=== PATIENT | male | born 1955 | race African-American/Black ===

== ENCOUNTER 2017-05-04 10:20 | Day surgery (SDC) | payer MEDICARE ==
[2017-05-04 12:06] LABS: POTASSIUM 4.3 mmol/L (3.5-5.1)
[2017-05-04] MEDS ORDERED: ROPIVACAINE 0.5 % 30 ML VIAL (12:24)
[2017-05-04] MEDS ORDERED: MIDAZOLAM 1 MG/ML 2 ML INJ ×2 (12:44→14:03)
[2017-05-04] MEDS ORDERED: FENTAnyl 50 MCG/ML VIAL (12:44)
[2017-05-04] MEDS: LIDOCAINE 1% (MPF) 30 ML INJ (13:07)
[2017-05-04] MEDS: THROMBIN 5000 UNIT VIAL (13:07)
[2017-05-04] MEDS: HEPARIN 1000 UNITS/ML 10 ML INJ (13:07)
[2017-05-04] MEDS: GELATIN SIZE 100 SPONGE (13:08)
[2017-05-04] MEDS ORDERED: hydrALAzine 20 MG INJ ×2 (13:11→14:38)
[2017-05-04] MEDS ORDERED: HYDROmorphONE (0.2 MG/ML) 10ML SYG IV ×2 (14:43→15:00)
[2017-05-04] MEDS: HYDROmorphONE (0.2 MG/ML) 10ML SYG IV ×2 (14:47→14:57)
[2017-05-04] MEDS: hydrALAzine 20 MG INJ IV ×2 (14:47→14:56)
[2017-05-04] MEDS ORDERED: METOCLOPRAMIDE 10 MG INJ IV (15:00)
[2017-05-04] MEDS ORDERED: FENTAnyl 50 MCG/ML VIAL IV ×2 (15:00)
[2017-05-04] MEDS ORDERED: MEPERIDINE 25 MG INJ IV (15:00)
[2017-05-04] MEDS ORDERED: ONDANSETRON 4 MG INJ IV (15:00)
[2017-05-04] MEDS ORDERED: DIPHENHYDRAMINE 50 MG INJ IV (15:00)
== END 2017-05-04 16:30 | disposition home or self-care (01) ==
LOC: SDS 10:20
DX: Z45.2 Encounter for adjustment and management of vascular access device (principal); N18.6 End stage renal disease; E11.22 Type 2 diabetes mellitus with diabetic chronic kidney disease; I12.0 Hypertensive chronic kidney disease with stage 5 chronic kidney disease or end stage renal disease
CPT/HCPCS: 36830; 84132

== ENCOUNTER 2017-06-29 12:43 | Inpatient (IN) | payer MEDICARE, BC ==
[2017-06-29] MEDS: IPRATROPIUM (NEB) 0.5 MG/2.5 ML AMP INH (14:05)
[2017-06-29] MEDS: ALBUTEROL 0.5% (NEB) 2.5 MG/0.5 ML AMP INH (14:06)
[2017-06-29] MEDS: LEVOFLOXACIN 750MG/D5W (PMX) 150 ML IVPB (14:30)
[2017-06-29] MEDS: METHYLPREDNISOLONE 125 MG INJ IV (14:30)
[2017-06-29 14:34] LABS: ADD MAN DIFF? NO
[2017-06-29 14:36] LABS: ABNORMAL IP MESSAGE 1; BASOPHILS % 0.6 % (0.0-2.0); EOSINOPHILS % 0.3 % (0.0-7.0); HEMOGLOBIN 10.5 g/dl (14.0-18.0); LYMPHOCYTES # 0.6 10^3/ul (0.8-2.9); LYMPHOCYTES % 8.9 % (15.0-51.0); MEAN CORPUSCULAR HEMOGLOBIN 31.9 pg (29.0-33.0); MEAN CORPUSCULAR VOLUME 91.2 fl (82.0-101.0); MEAN PLATELET VOLUME 10.9 fl (7.4-10.4); MONOCYTE # 0.9 10^3/ul (0.3-0.9); NEUTROPHIL # 4.9 10^3/ul (1.6-7.5); NEUTROPHILS % 75.9 % (39.0-77.0); PLATELET COUNT 169 10^3/UL (140-415); POSITIVE DIFF @See below; RED BLOOD COUNT 3.29 10^6/ul (4.70-6.10); RED CELL DISTRIBUTION WIDTH 18.5 % (11.5-14.5)
[2017-06-29 14:36] LABS: WHITE BLOOD COUNT 6.5 10^3/ul (4.8-10.8)
[2017-06-29] MEDS: IBUPROFEN 600 MG TAB PO (14:40)
[2017-06-29 14:54] LABS: INR 1.22; PARTIAL THROMBOPLASTIN TIME 33.2 Sec (25.0-35.0); PROTIME 15.6 Sec (11.9-14.9); PT RATIO 1.2
[2017-06-29 14:56] LABS: ALANINE AMINOTRANSFERASE 34 IU/L (13-69); ALBUMIN 3.9 g/dl (3.3-4.9); ALKALINE PHOSPHATASE 86 IU/L (42-121); ANION GAP 22 (8-16); ASPARTATE AMINO TRANSFERASE 18 IU/L (15-46); BILIRUBIN,INDIRECT 0.3 mg/dl (0-1.1); BILIRUBIN,TOTAL 0.3 mg/dl (0.2-1.3); BLOOD UREA NITROGEN 58 mg/dl (7-20); CALCIUM 9.1 mg/dl (8.4-10.2); CARBON DIOXIDE 24 mmol/L (21-31); CHLORIDE 98 mmol/L (97-110); CREATININE 9.23 mg/dl (0.61-1.24); GLUCOSE 128 mg/dl (70-220); LIPASE 158 U/L (23-300); POTASSIUM 3.8 mmol/L (3.5-5.1); SODIUM 140 mmol/L (135-144); TOTAL PROTEIN 6.9 g/dl (6.1-8.1)
[2017-06-29 15:07] LABS: TROPONIN-I 0.088 ng/ml (0.00-0.12)
[2017-06-29 15:12] LABS: LACTIC ACID 2.1 mmol/L (0.5-2.0)
[2017-06-29] MEDS ORDERED: ONDANSETRON 4 MG INJ IV ×2 (16:00→16:30)
[2017-06-29] MEDS ORDERED: ACETAMINOPHEN 325 MG TAB PO ×2 (16:00→16:30)
[2017-06-29 16:27] LABS: LACTIC ACID 2.5 mmol/L (0.5-2.0)
[2017-06-29] MEDS ORDERED: HYDROCODONE/APAP (5/325) TAB PO (16:30)
[2017-06-29] MEDS ORDERED: NACL 0.9% 3 ML SYG IV (16:30)
[2017-06-29 18:37] LABS: LACTIC ACID 1.5 mmol/L (0.5-2.0)
[2017-06-29] MEDS: ALBUTEROL/IPRATROPIUM (NEB) 3 ML AMP HHN (19:24)
[2017-06-29] MEDS: CLONIDINE 0.2 MG/24 HR PATCH TRANSDERM (19:39)
[2017-06-29] MEDS: NEBIVOLOL 5 MG TAB PO (20:35)
[2017-06-29] MEDS: GUAIFENESIN/DM (SR) TAB PO (20:36)
[2017-06-29] MEDS: VALSARTAN 160 MG TAB PO (20:36)
[2017-06-29] MEDS: FLUOXETINE 20 MG CAP PO (20:36)
[2017-06-29] MEDS: NIFEdipine (XL) 60 MG TAB PO (20:36)
[2017-06-29] MEDS: MINOXIDIL 2.5 MG TAB PO (20:39)
[2017-06-29] MEDS ORDERED: RANITIDINE 150 MG TAB PO (21:00)
[2017-06-29] MEDS: HEPARIN 5,000 UNIT/0.5 ML VIAL SC (22:56)
[2017-06-30] MEDS: ALBUTEROL/IPRATROPIUM (NEB) 3 ML AMP HHN ×4 (01:50→20:36)
[2017-06-30] MEDS: LEVOTHYROXINE 150 MCG TAB PO (05:53)
[2017-06-30] MEDS: PANTOPRAZOLE (EC) 40 MG TAB PO (05:53)
[2017-06-30] MEDS: LEVOTHYROXINE 175 MCG TAB PO (05:53)
[2017-06-30] MEDS: HEPARIN 5,000 UNIT/0.5 ML VIAL SC ×3 (05:55→21:48)
[2017-06-30] MEDS ORDERED: LEVOTHYROXINE 100 MCG TAB PO (07:00)
[2017-06-30 08:33] LABS: ADD MAN DIFF? NO
[2017-06-30 08:44] LABS: ABNORMAL IP MESSAGE 1; BASOPHILS % 0.2 % (0.0-2.0); HEMATOCRIT 31.4 % (42.0-52.0); HEMOGLOBIN 11.1 g/dl (14.0-18.0); LYMPHOCYTES # 0.5 10^3/ul (0.8-2.9); LYMPHOCYTES % 8.7 % (15.0-51.0); MEAN CORPUSCULAR HGB CONC 35.4 g/dl (32.0-37.0); MEAN CORPUSCULAR VOLUME 90.5 fl (82.0-101.0); MEAN PLATELET VOLUME 10.7 fl (7.4-10.4); MONOCYTE # 0.7 10^3/ul (0.3-0.9); MONOCYTES % 11.9 % (0.0-11.0); NEUTROPHIL # 4.7 10^3/ul (1.6-7.5); NEUTROPHILS % 78.9 % (39.0-77.0); PLATELET COUNT 166 10^3/UL (140-415); POSITIVE DIFF @See below; RED BLOOD COUNT 3.47 10^6/ul (4.70-6.10); RED CELL DISTRIBUTION WIDTH 18.3 % (11.5-14.5)
[2017-06-30 08:59] LABS: ALANINE AMINOTRANSFERASE 34 IU/L (13-69); ALBUMIN 3.8 g/dl (3.3-4.9); ALBUMIN/GLOBULIN RATIO 1.26; ALKALINE PHOSPHATASE 89 IU/L (42-121); ANION GAP 21 (8-16); ASPARTATE AMINO TRANSFERASE 16 IU/L (15-46); BILIRUBIN,INDIRECT 0.1 mg/dl (0-1.1); BILIRUBIN,TOTAL 0.1 mg/dl (0.2-1.3); BLOOD UREA NITROGEN 66 mg/dl (7-20); CALCIUM 9.4 mg/dl (8.4-10.2); CARBON DIOXIDE 23 mmol/L (21-31); CHLORIDE 100 mmol/L (97-110); CREATININE 9.78 mg/dl (0.61-1.24); GLUCOSE 154 mg/dl (70-220); PHOSPHORUS 6.6 mg/dl (2.5-4.9); POTASSIUM 3.9 mmol/L (3.5-5.1); SODIUM 140 mmol/L (135-144); TOTAL PROTEIN 6.8 g/dl (6.1-8.1)
[2017-06-30] MEDS ORDERED: LEVOFLOXACIN 250MG/D5W (PMX) 50 ML IVPB (09:00)
[2017-06-30 09:07] LABS: HEMOGLOBIN A1C 5.1 % (0-5.9)
[2017-06-30] MEDS: GUAIFENESIN/DM (SR) TAB PO ×2 (09:15→20:51)
[2017-06-30] MEDS: LIOTHYRONINE 5 MCG TAB PO (09:15)
[2017-06-30] MEDS: SEVELAMER CARBONATE 0.8 GM PKT PO ×4 (09:16→20:50)
[2017-06-30 10:26] LABS: TROPONIN-I 0.068 ng/ml (0.00-0.12)
[2017-06-30 11:17] LABS: AADO2 Arterial 47.4 mmHg (7.0-24.0); Allen Test ACCEPTAB; Arterial Base Excess 0.6 mmol/L (-3.0-3); Arterial Blood Gas Oxygen Sat 87.2 mmHG (95.0-98.0); Arterial COHb 0.5 % (0.0-3.0); Arterial Fraction of Oxyhgb 86.4 % (93.0-99.0); Arterial HCO3 25.1 mmol/L (22.0-26.0); Arterial MetHb 0.4 % (0.0-1.5); Arterial Total Hemglobin 12.3 g/dl (12.0-18.0); Arterial pCO2 39.9 mmhg (35-45); MODE ROOM AIR; Site Right Radial
[2017-06-30 12:49] LABS: HAAIG REFLEX REFLEX FILED
[2017-06-30 13:28] LABS: HEPATITIS B SURFACE ANTIGEN NEGATIVE (NEGATIVE)
[2017-06-30 13:46] LABS: HEPATITIS B CORE ANTIBODY NEGATIVE (NEGATIVE); HEPATITIS C VIRAL ANTIBODY NEGATIVE (NEGATIVE)
[2017-06-30 20:30] LABS: ADD UMIC YES; UR ASCORBIC ACID NEGATIVE (NEGATIVE); UR BACTERIA FEW /HPF (NONE SEEN); UR BILIRUBIN (Dip) NEGATIVE (NEGATIVE); UR BLOOD (Dip) NEGATIVE (NEGATIVE); UR CLARITY CLOUDY (CLEAR); UR COLOR YELLOW (YELLOW); UR GLUCOSE (Dip) NEGATIVE (NEGATIVE); UR KETONES (Dip) NEGATIVE (NEGATIVE); UR LEUKOCYTE ESTERASE (Dip) 1+ Leu/ul (NEGATIVE); UR MUCUS MANY /HPF (NONE SEEN); UR NITRITE (Dip) NEGATIVE (NEGATIVE); UR RBC 5 /HPF (0-5); UR SPECIFIC GRAVITY (Dip) 1.005 (1.003-1.030); UR SQUAMOUS EPITHELIAL CELL FEW /HPF (FEW); UR TOTAL PROTEIN (Dip) 3+ mg/dl (NEGATIVE); UR UROBILINOGEN (Dip) NEGATIVE (NEGATIVE); UR WBC 2 /HPF (0-5)
[2017-06-30] MEDS: MINOXIDIL 2.5 MG TAB PO (20:51)
[2017-06-30] MEDS: NIFEdipine (XL) 60 MG TAB PO (20:51)
[2017-06-30] MEDS: NEBIVOLOL 5 MG TAB PO (20:51)
[2017-06-30] MEDS: VALSARTAN 160 MG TAB PO (20:52)
[2017-06-30] MEDS: FLUOXETINE 20 MG CAP PO (21:47)
[2017-07-01] MEDS: ALBUTEROL/IPRATROPIUM (NEB) 3 ML AMP HHN ×4 (01:21→19:46)
[2017-07-01] MEDS: LEVOTHYROXINE 150 MCG TAB PO (06:12)
[2017-07-01] MEDS: LEVOTHYROXINE 175 MCG TAB PO (06:13)
[2017-07-01] MEDS: HEPARIN 5,000 UNIT/0.5 ML VIAL SC ×3 (06:14→20:52)
[2017-07-01 06:32] LABS: ADD MAN DIFF? NO
[2017-07-01 07:23] LABS: ANION GAP 19 (8-16); BLOOD UREA NITROGEN 50 mg/dl (7-20); CALCIUM 8.9 mg/dl (8.4-10.2); CARBON DIOXIDE 26 mmol/L (21-31); CHLORIDE 102 mmol/L (97-110); CREATININE 7.16 mg/dl (0.61-1.24); GLUCOSE 95 mg/dl (70-220); PHOSPHORUS 4.5 mg/dl (2.5-4.9); POTASSIUM 3.3 mmol/L (3.5-5.1); SODIUM 144 mmol/L (135-144)
[2017-07-01 08:10] LABS: WHITE BLOOD COUNT 7.5 10^3/ul (4.8-10.8)
[2017-07-01 08:10] LABS: BASOPHILS % 0.3 % (0.0-2.0); EOSINOPHILS % 0.4 % (0.0-7.0); HEMATOCRIT 30.8 % (42.0-52.0); HEMOGLOBIN 10.5 g/dl (14.0-18.0); LYMPHOCYTES # 0.6 10^3/ul (0.8-2.9); LYMPHOCYTES % 8.4 % (15.0-51.0); MEAN CORPUSCULAR HEMOGLOBIN 31.3 pg (29.0-33.0); MEAN CORPUSCULAR HGB CONC 34.1 g/dl (32.0-37.0); MEAN CORPUSCULAR VOLUME 91.7 fl (82.0-101.0); MEAN PLATELET VOLUME 10.7 fl (7.4-10.4); MONOCYTE # 0.7 10^3/ul (0.3-0.9); MONOCYTES % 9.2 % (0.0-11.0); NEUTROPHIL # 6.1 10^3/ul (1.6-7.5); NEUTROPHILS % 81.4 % (39.0-77.0); PLATELET COUNT 167 10^3/UL (140-415); RED BLOOD COUNT 3.36 10^6/ul (4.70-6.10); RED CELL DISTRIBUTION WIDTH 18.5 % (11.5-14.5)
[2017-07-01] MEDS: GUAIFENESIN/DM (SR) TAB PO ×2 (08:49→20:50)
[2017-07-01] MEDS: SEVELAMER CARBONATE 0.8 GM PKT PO ×2 (08:50→18:10)
[2017-07-01 08:52] LABS: ERYTHROCYTE SEDIMENTATION RATE 9 mm/Hr (0-20)
[2017-07-01 09:01] LABS: IRON 36 ug/dl (35-150)
[2017-07-01 09:11] LABS: % IRON SATURATION 23 % SAT (22-52); TOTAL IRON BINDING CAPACITY 157 ug/dl (241-421)
[2017-07-01] MEDS: POTASSIUM CHLORIDE (SR) 10 MEQ TAB PO (12:12)
[2017-07-01] MEDS: LIOTHYRONINE 5 MCG TAB PO (12:12)
[2017-07-01] MEDS ORDERED: POTASSIUM CHLORIDE (SR) 20 MEQ TAB PO (13:05)
[2017-07-01] MEDS: LEVOFLOXACIN 500MG/D5W (PMX) 100 ML IVPB (15:26)
[2017-07-01] MEDS: VALSARTAN 160 MG TAB PO (20:49)
[2017-07-01] MEDS: NEBIVOLOL 5 MG TAB PO (20:50)
[2017-07-01] MEDS: FLUOXETINE 20 MG CAP PO (20:50)
[2017-07-02] MEDS: ALBUTEROL/IPRATROPIUM (NEB) 3 ML AMP HHN ×4 (01:05→19:27)
[2017-07-02] MEDS: LEVOTHYROXINE 175 MCG TAB PO (06:00)
[2017-07-02] MEDS: LEVOTHYROXINE 150 MCG TAB PO (06:08)
[2017-07-02] MEDS: HEPARIN 5,000 UNIT/0.5 ML VIAL SC ×3 (06:12→22:00)
[2017-07-02 07:18] LABS: ADD MAN DIFF? NO
[2017-07-02 07:22] LABS: WHITE BLOOD COUNT 5.2 10^3/ul (4.8-10.8)
[2017-07-02 07:22] LABS: BASOPHILS % 0.6 % (0.0-2.0); EOSINOPHILS % 0.6 % (0.0-7.0); HEMOGLOBIN 9.8 g/dl (14.0-18.0); LYMPHOCYTES # 0.9 10^3/ul (0.8-2.9); LYMPHOCYTES % 16.5 % (15.0-51.0); MEAN CORPUSCULAR HEMOGLOBIN 32.9 pg (29.0-33.0); MEAN PLATELET VOLUME 11.3 fl (7.4-10.4); MONOCYTE # 0.6 10^3/ul (0.3-0.9); NEUTROPHIL # 3.6 10^3/ul (1.6-7.5); NEUTROPHILS % 69.9 % (39.0-77.0); PLATELET COUNT 179 10^3/UL (140-415); RED BLOOD COUNT 2.98 10^6/ul (4.70-6.10); RED CELL DISTRIBUTION WIDTH 18.5 % (11.5-14.5)
[2017-07-02 07:44] LABS: MAGNESIUM 2.3 mg/dl (1.7-2.5)
[2017-07-02 07:49] LABS: CHOLESTEROL 135 mg/dl (100-200)
[2017-07-02 07:49] LABS: CHOL/HDL RATIO 3.3 RATIO; HDL CHOLESTEROL 40 mg/dl (30-78); LDL CHOLESTEROL,CALCULATED 83 mg/dl; TRIGLYCERIDES 59 mg/dl (0-149)
[2017-07-02 07:59] LABS: ANION GAP 19 (8-16); BLOOD UREA NITROGEN 58 mg/dl (7-20); CARBON DIOXIDE 26 mmol/L (21-31); CHLORIDE 101 mmol/L (97-110); CREATININE 7.95 mg/dl (0.61-1.24); GLUCOSE 81 mg/dl (70-220); POTASSIUM 3.7 mmol/L (3.5-5.1); SODIUM 142 mmol/L (135-144)
[2017-07-02] MEDS: SEVELAMER CARBONATE 0.8 GM PKT PO ×3 (08:45→17:58)
[2017-07-02] MEDS: GUAIFENESIN/DM (SR) TAB PO ×2 (08:45→20:22)
[2017-07-02] MEDS: LIOTHYRONINE 5 MCG TAB PO (08:45)
[2017-07-02] MEDS: IODIXANOL LOCM 100 ML BTL (11:00)
[2017-07-02] MEDS: SOD CHLORIDE 0.9% 100 ML (11:00)
[2017-07-02] MEDS ORDERED: PEG/ELECTROLYTES 4L BTL PO (12:30)
[2017-07-02] MEDS: predniSONE 20 MG TAB PO ×2 (14:55→20:22)
[2017-07-02] MEDS ORDERED: NA POLYST SULFON 15 GM/60 ML BTL PO (17:00)
[2017-07-02] MEDS ORDERED: LACTULOSE 30ML CUP PO (17:00)
[2017-07-02] MEDS: FLUOXETINE 20 MG CAP PO (20:22)
[2017-07-02] MEDS: NIFEdipine (XL) 30 MG TAB PO (21:00)
[2017-07-02] MEDS: NEBIVOLOL 5 MG TAB PO (21:00)
[2017-07-02] MEDS: VALSARTAN 160 MG TAB PO (21:00)
[2017-07-03] MEDS: ALBUTEROL/IPRATROPIUM (NEB) 3 ML AMP HHN ×4 (01:03→20:29)
[2017-07-03] MEDS: ALBUMIN HUMAN 25% 100 ML IV ×2 (03:50→03:52)
[2017-07-03] MEDS: LEVOTHYROXINE 150 MCG TAB PO (06:18)
[2017-07-03] MEDS: HEPARIN 5,000 UNIT/0.5 ML VIAL SC ×3 (06:22→22:08)
[2017-07-03] MEDS: LEVOTHYROXINE 175 MCG TAB PO ×2 (08:00→08:37)
[2017-07-03] MEDS: predniSONE 20 MG TAB PO ×2 (08:36→22:05)
[2017-07-03] MEDS: SEVELAMER CARBONATE 0.8 GM PKT PO ×3 (08:38→17:13)
[2017-07-03] MEDS: GUAIFENESIN/DM (SR) TAB PO ×2 (08:56→22:05)
[2017-07-03] MEDS: LIOTHYRONINE 5 MCG TAB PO (08:56)
[2017-07-03 12:08] LABS: ADD MAN DIFF? NO
[2017-07-03 12:17] LABS: WHITE BLOOD COUNT 4.7 10^3/ul (4.8-10.8)
[2017-07-03 12:17] LABS: ABNORMAL IP MESSAGE 1; HEMATOCRIT 27.9 % (42.0-52.0); HEMOGLOBIN 9.9 g/dl (14.0-18.0); LYMPHOCYTES # 0.5 10^3/ul (0.8-2.9); LYMPHOCYTES % 10.9 % (15.0-51.0); MEAN CORPUSCULAR HEMOGLOBIN 36.7 pg (29.0-33.0); MEAN CORPUSCULAR HGB CONC 35.5 g/dl (32.0-37.0); MEAN CORPUSCULAR VOLUME 103.3 fl (82.0-101.0); MEAN PLATELET VOLUME 10.5 fl (7.4-10.4); MONOCYTE # 0.4 10^3/ul (0.3-0.9); MONOCYTES % 9.2 % (0.0-11.0); NEUTROPHIL # 3.7 10^3/ul (1.6-7.5); NEUTROPHILS % 79.7 % (39.0-77.0); PLATELET COUNT 145 10^3/UL (140-415); POSITIVE DIFF @See below
[2017-07-03 12:35] LABS: ANION GAP 18 (8-16); BLOOD UREA NITROGEN 42 mg/dl (7-20); CALCIUM 9.2 mg/dl (8.4-10.2); CARBON DIOXIDE 26 mmol/L (21-31); CHLORIDE 102 mmol/L (97-110); CREATININE 6.03 mg/dl (0.61-1.24); GLUCOSE 124 mg/dl (70-220); POTASSIUM 4.4 mmol/L (3.5-5.1); SODIUM 142 mmol/L (135-144)
[2017-07-03] MEDS: LEVOFLOXACIN 500MG/D5W (PMX) 100 ML IVPB (14:52)
[2017-07-03] MEDS: EPOETIN 10000 UNITS/1 ML INJ (ESRD) SC (18:16)
[2017-07-03] MEDS: NEBIVOLOL 5 MG TAB PO (21:00)
[2017-07-03] MEDS: NIFEdipine (XL) 30 MG TAB PO (22:04)
[2017-07-03] MEDS: ATORVASTATIN 10 MG TAB PO (22:05)
[2017-07-03] MEDS: FLUOXETINE 20 MG CAP PO (22:06)
[2017-07-03] MEDS: VALSARTAN 160 MG TAB PO (22:06)
[2017-07-04] MEDS: ALBUTEROL/IPRATROPIUM (NEB) 3 ML AMP HHN ×2 (01:27→08:30)
[2017-07-04] MEDS: LEVOTHYROXINE 175 MCG TAB PO (06:31)
[2017-07-04] MEDS: LEVOTHYROXINE 150 MCG TAB PO (06:31)
[2017-07-04] MEDS: HEPARIN 5,000 UNIT/0.5 ML VIAL SC ×2 (06:36→14:00)
[2017-07-04] MEDS: GUAIFENESIN/DM (SR) TAB PO (09:11)
[2017-07-04] MEDS: predniSONE 20 MG TAB PO (09:11)
[2017-07-04] MEDS: LIOTHYRONINE 5 MCG TAB PO (09:11)
[2017-07-04] MEDS: SEVELAMER CARBONATE 0.8 GM PKT PO ×2 (09:11→11:24)
[2017-07-04 09:17] LABS: ADD MAN DIFF? NO
[2017-07-04 09:50] LABS: ANION GAP 20 (8-16); BLOOD UREA NITROGEN 49 mg/dl (7-20); CALCIUM 9.6 mg/dl (8.4-10.2); CARBON DIOXIDE 27 mmol/L (21-31); CHLORIDE 100 mmol/L (97-110); CREATININE 6.87 mg/dl (0.61-1.24); GLUCOSE 102 mg/dl (70-220); POTASSIUM 4.6 mmol/L (3.5-5.1); SODIUM 142 mmol/L (135-144)
[2017-07-04 10:56] LABS: ABNORMAL IP MESSAGE 1; BASOPHILS % 0.2 % (0.0-2.0); EOSINOPHILS % 0.2 % (0.0-7.0); HEMATOCRIT 30.6 % (42.0-52.0); HEMOGLOBIN 10.3 g/dl (14.0-18.0); LYMPHOCYTES # 0.4 10^3/ul (0.8-2.9); LYMPHOCYTES % 7.1 % (15.0-51.0); MEAN CORPUSCULAR HEMOGLOBIN 31.9 pg (29.0-33.0); MEAN CORPUSCULAR HGB CONC 33.7 g/dl (32.0-37.0); MEAN CORPUSCULAR VOLUME 94.7 fl (82.0-101.0); MEAN PLATELET VOLUME 11.2 fl (7.4-10.4); MONOCYTE # 0.3 10^3/ul (0.3-0.9); MONOCYTES % 5.8 % (0.0-11.0); NEUTROPHIL # 4.3 10^3/ul (1.6-7.5); NEUTROPHILS % 86.3 % (39.0-77.0); PLATELET COUNT 186 10^3/UL (140-415); POSITIVE DIFF @See below; RED BLOOD COUNT 3.23 10^6/ul (4.70-6.10); RED CELL DISTRIBUTION WIDTH 18.4 % (11.5-14.5)
[2017-07-06 07:51] LABS: PROCALCITONIN 1.39 ng/mL (<0.10)
== END 2017-07-04 15:10 | disposition home or self-care (01) | DRG 202 ==
LOC: MS4 21:19 → E/R 12:43 → MS4 15:45
PROC: 5A1D70Z Performance of Urinary Filtration, Intermittent, Less than 6 Hours Per Day (ICD-10-PCS; principal; 2017-06-29)
PROC: 4A033R1 Measurement of Arterial Saturation, Peripheral, Percutaneous Approach (ICD-10-PCS; 2017-06-30)
PROC: 5A1D70Z Performance of Urinary Filtration, Intermittent, Less than 6 Hours Per Day (ICD-10-PCS; 2017-07-01)
PROC: 5A1D70Z Performance of Urinary Filtration, Intermittent, Less than 6 Hours Per Day (ICD-10-PCS; 2017-07-03)
DX: J45.909 Unspecified asthma, uncomplicated (principal); N18.6 End stage renal disease; I12.0 Hypertensive chronic kidney disease with stage 5 chronic kidney disease or end stage renal disease; I27.29 Other secondary pulmonary hypertension; I47.1 Supraventricular tachycardia; E66.9 Obesity, unspecified; G47.33 Obstructive sleep apnea (adult) (pediatric); R19.7 Diarrhea, unspecified; R73.03 Prediabetes; M10.9 Gout, unspecified; D63.1 Anemia in chronic kidney disease; I35.2 Nonrheumatic aortic (valve) stenosis with insufficiency; I25.10 Atherosclerotic heart disease of native coronary artery without angina pectoris; E03.9 Hypothyroidism, unspecified; Z99.2 Dependence on renal dialysis; Z85.850 Personal history of malignant neoplasm of thyroid; Z88.2 Allergy status to sulfonamides
CPT/HCPCS: 36415; 36600; 70450; 71045; 71275; 74176; 80048; 80053; 80061; 81001; 82607; 82728; 82803; 82962; 83036; 83540; 83605; 83690; 83735; 84100; 84145; 84443; 84484; 85025; 85610; 85651; 85730; 86704; 86709; 86803; 87040; 87070; 87081; 87086; 87340; 87400; 90935; 93005; 93306; 94640; 94644; 94664; 96374; 96375; 99291-25

== ENCOUNTER 2017-07-17 22:14 | Inpatient (IN) | payer MEDICARE, BC ==
[2017-07-17] MEDS: SOD CHLORIDE 0.9% 1,000 ML IV (23:30)
[2017-07-18 00:10] LABS: ADD MAN DIFF? NO
[2017-07-18 00:26] LABS: WHITE BLOOD COUNT 6.3 10^3/ul (4.8-10.8)
[2017-07-18 00:26] LABS: BASOPHIL # 0.1 10^3/ul (0.0-0.1); BASOPHILS % 0.8 % (0.0-2.0); EOSINOPHILS % 0.6 % (0.0-7.0); HEMATOCRIT 31.3 % (42.0-52.0); HEMOGLOBIN 11.2 g/dl (14.0-18.0); LYMPHOCYTES # 0.9 10^3/ul (0.8-2.9); LYMPHOCYTES % 13.5 % (15.0-51.0); MEAN CORPUSCULAR HEMOGLOBIN 31.9 pg (29.0-33.0); MEAN CORPUSCULAR HGB CONC 35.8 g/dl (32.0-37.0); MEAN CORPUSCULAR VOLUME 89.2 fl (82.0-101.0); MEAN PLATELET VOLUME 10.4 fl (7.4-10.4); MONOCYTE # 1.1 10^3/ul (0.3-0.9); MONOCYTES % 16.7 % (0.0-11.0); NEUTROPHIL # 4.3 10^3/ul (1.6-7.5); NEUTROPHILS % 67.9 % (39.0-77.0); NUCLEATED RED BLOOD CELLS # 0.1 10^3/ul (0.0-0.0); NUCLEATED RED BLOOD CELLS% 0.8 /100WBC (0.0-0.0); PLATELET COUNT 143 10^3/UL (140-415); RED BLOOD COUNT 3.51 10^6/ul (4.70-6.10); RED CELL DISTRIBUTION WIDTH 19.9 % (11.5-14.5)
[2017-07-18 00:38] LABS: ALANINE AMINOTRANSFERASE 316 IU/L (13-69); ALBUMIN 3.8 g/dl (3.3-4.9); ALBUMIN/GLOBULIN RATIO 1.18; ALKALINE PHOSPHATASE 186 IU/L (42-121); ANION GAP 20 (8-16); ASPARTATE AMINO TRANSFERASE 349 IU/L (15-46); BILIRUBIN,INDIRECT 0.9 mg/dl (0-1.1); BLOOD UREA NITROGEN 35 mg/dl (7-20); CALCIUM 8.9 mg/dl (8.4-10.2); CARBON DIOXIDE 28 mmol/L (21-31); CHLORIDE 96 mmol/L (97-110); CREATININE 6.88 mg/dl (0.61-1.24); GLUCOSE 87 mg/dl (70-220); POTASSIUM 3.5 mmol/L (3.5-5.1); SODIUM 140 mmol/L (135-144)
[2017-07-18 00:47] LABS: LACTIC ACID 2.5 mmol/L (0.5-2.0)
[2017-07-18 00:51] LABS: INR 1.34; PROTIME 16.8 Sec (11.9-14.9); PT RATIO 1.3
[2017-07-18 00:52] LABS: PARTIAL THROMBOPLASTIN TIME 35.6 Sec (25.0-35.0)
[2017-07-18] MEDS: SODIUM CHLORIDE 0.9% 1L BAG IV* (01:02)
[2017-07-18] MEDS: CEFEPIME 2GM/50 ML (PMX) 50 ML IVPB (01:04)
[2017-07-18 01:32] LABS: AMMONIA 18 umol/l (9-30)
[2017-07-18] MEDS: VANCOMYCIN 1 GM (PMX) 250 ML IVPB (01:35)
[2017-07-18] MEDS ORDERED: VANCOMYCIN IV PER PHARMACY XX (04:00)
[2017-07-18] MEDS ORDERED: NACL 0.9% 3 ML SYG IV (04:00)
[2017-07-18] MEDS ORDERED: ONDANSETRON 4 MG INJ IV (04:00)
[2017-07-18 04:37] LABS: AADO2 Arterial 44.9 mmHg (7.0-24.0); Allen Test ACCEPTAB; Arterial Base Excess 0.8 mmol/L (-3.0-3); Arterial Blood Gas Oxygen Sat 91.2 mmHG (95.0-98.0); Arterial COHb 0.5 % (0.0-3.0); Arterial Fraction of Oxyhgb 90.6 % (93.0-99.0); Arterial HCO3 24.5 mmol/L (22.0-26.0); Arterial MetHb 0.2 % (0.0-1.5); Arterial Total Hemglobin 12.2 g/dl (12.0-18.0); Arterial pCO2 36.1 mmhg (35-45); MODE ROOM AIR; Site Left Radial
[2017-07-18] MEDS: PANTOPRAZOLE 40 MG INJ IV (06:07)
[2017-07-18] MEDS: VANCOMYCIN 1 GM in 250 ML IVPB (06:07)
[2017-07-18] MEDS: HEPARIN 5,000 UNIT/0.5 ML VIAL SC (06:11)
[2017-07-18] MEDS ORDERED: LEVOTHYROXINE 100 MCG TAB PO (07:00)
[2017-07-18 07:05] LABS: LACTIC ACID 2.3 mmol/L (0.5-2.0)
[2017-07-18 07:43] LABS: LACTIC ACID 2.1 mmol/L (0.5-2.0)
[2017-07-18] MEDS: SEVELAMER CARBONATE 0.8 GM PKT PO ×3 (08:44→20:26)
[2017-07-18] MEDS: LEVOTHYROXINE 75 MCG TAB PO (08:44)
[2017-07-18] MEDS: NIFEdipine (XL) 30 MG TAB PO (08:46)
[2017-07-18] MEDS: LIOTHYRONINE 5 MCG TAB PO (08:47)
[2017-07-18] MEDS: FAMOTIDINE 20 MG TAB PO (08:48)
[2017-07-18 10:44] LABS: TROPONIN-I 0.086 ng/ml (0.00-0.12)
[2017-07-18] MEDS: LORAZEPAM 2 MG INJ IV (10:55)
[2017-07-18 11:17] LABS: B-TYPE NATRIURETIC PEPTIDE 57100 PG/ML (0-125)
[2017-07-18] MEDS: AZITHROMYCIN 500MG/NS (PMX) 250 ML IVPB (12:08)
[2017-07-18] MEDS: MEROPENEM 500MG/50 ML (PMX) 50 ML IVPB (18:29)
[2017-07-18] MEDS: VALSARTAN 160 MG TAB PO (21:00)
[2017-07-18] MEDS: NEBIVOLOL 5 MG TAB PO (21:00)
[2017-07-18] MEDS: FLUOXETINE 20 MG CAP PO (21:00)
[2017-07-18] MEDS: RANITIDINE 150 MG TAB PO (21:00)
[2017-07-18] MEDS ORDERED: NEBIVOLOL 5 MG TAB PO (21:00)
[2017-07-19 00:39] LABS: HEPATITIS B SURFACE ANTIBODY NEGATIVE (NEGATIVE)
[2017-07-19] MEDS: PANTOPRAZOLE 40 MG INJ IV (06:43)
[2017-07-19] MEDS: LEVOTHYROXINE 75 MCG TAB PO (06:43)
[2017-07-19] MEDS: SEVELAMER CARBONATE 0.8 GM PKT PO ×3 (08:00→17:55)
[2017-07-19 08:52] LABS: ADD MAN DIFF? NO
[2017-07-19] MEDS ORDERED: MEROPENEM 1 GM/50ML(PMX) 50 ML IVPB (09:00)
[2017-07-19] MEDS ORDERED: CEFEPIME 1GM/50 ML (PMX) 50 ML IVPB (09:00)
[2017-07-19 09:03] LABS: ABNORMAL IP MESSAGE 1; BASOPHIL # 0.1 10^3/ul (0.0-0.1); EOSINOPHILS % 0.5 % (0.0-7.0); HEMATOCRIT 30.2 % (42.0-52.0); HEMOGLOBIN 10.9 g/dl (14.0-18.0); LYMPHOCYTES # 0.8 10^3/ul (0.8-2.9); MEAN CORPUSCULAR HEMOGLOBIN 31.6 pg (29.0-33.0); MEAN CORPUSCULAR HGB CONC 36.1 g/dl (32.0-37.0); MEAN CORPUSCULAR VOLUME 87.5 fl (82.0-101.0); MEAN PLATELET VOLUME 12.1 fl (7.4-10.4); MONOCYTES % 15.7 % (0.0-11.0); NEUTROPHIL # 4.3 10^3/ul (1.6-7.5); NEUTROPHILS % 69.5 % (39.0-77.0); NUCLEATED RED BLOOD CELLS # 0.1 10^3/ul (0.0-0.0); NUCLEATED RED BLOOD CELLS% 1.1 /100WBC (0.0-0.0); PLATELET COUNT 87 10^3/UL (140-415); POSITIVE DIFF @See below; RED BLOOD COUNT 3.45 10^6/ul (4.70-6.10); RED CELL DISTRIBUTION WIDTH 20.7 % (11.5-14.5)
[2017-07-19 09:03] LABS: WHITE BLOOD COUNT 6.2 10^3/ul (4.8-10.8)
[2017-07-19 09:50] LABS: ALANINE AMINOTRANSFERASE 275 IU/L (13-69); ALBUMIN 3.6 g/dl (3.3-4.9); ALBUMIN/GLOBULIN RATIO 1.38; ALKALINE PHOSPHATASE 156 IU/L (42-121); ANION GAP 20 (8-16); ASPARTATE AMINO TRANSFERASE 201 IU/L (15-46); BILIRUBIN,INDIRECT 1.1 mg/dl (0-1.1); BILIRUBIN,TOTAL 1.5 mg/dl (0.2-1.3); BLOOD UREA NITROGEN 30 mg/dl (7-20); CALCIUM 9.3 mg/dl (8.4-10.2); CARBON DIOXIDE 24 mmol/L (21-31); CHLORIDE 100 mmol/L (97-110); CREATININE 6.09 mg/dl (0.61-1.24); GLUCOSE 77 mg/dl (70-220); PHOSPHORUS 4.5 mg/dl (2.5-4.9); POTASSIUM 3.4 mmol/L (3.5-5.1); SODIUM 141 mmol/L (135-144); TOTAL PROTEIN 6.2 g/dl (6.1-8.1)
[2017-07-19] MEDS: NIFEdipine (XL) 30 MG TAB PO (10:05)
[2017-07-19] MEDS: LIOTHYRONINE 5 MCG TAB PO (10:05)
[2017-07-19 10:19] LABS: Allen Test ACCEPTAB; Arterial Base Excess 0.4 mmol/L (-3.0-3); Arterial Blood Gas Oxygen Sat 89.9 mmHG (95.0-98.0); Arterial COHb 0.7 % (0.0-3.0); Arterial Fraction of Oxyhgb 89.1 % (93.0-99.0); Arterial HCO3 23.7 mmol/L (22.0-26.0); Arterial MetHb 0.2 % (0.0-1.5); Arterial Total Hemglobin 12.3 g/dl (12.0-18.0); Arterial pCO2 33.9 mmhg (35-45); MODE ROOM AIR; Site Right Radial
[2017-07-19 10:27] LABS: ERYTHROCYTE SEDIMENTATION RATE 2 mm/Hr (0-20)
[2017-07-19] MEDS: HEPARIN 5,000 UNIT/0.5 ML VIAL SC ×2 (10:35→20:55)
[2017-07-19 12:27] LABS: HAAIG REFLEX REFLEX FILED
[2017-07-19] MEDS ORDERED: ALBUTEROL/IPRATROPIUM (NEB) 3 ML AMP (12:46)
[2017-07-19] MEDS: AZITHROMYCIN 500MG/NS (PMX) 250 ML IVPB (13:14)
[2017-07-19] MEDS: POTASSIUM CHLORIDE (SR) 20 MEQ TAB PO (13:20)
[2017-07-19] MEDS: LACTULOSE 30ML CUP PO ×2 (13:21→22:17)
[2017-07-19] MEDS: ALBUTEROL/IPRATROPIUM (NEB) 3 ML AMP HHN (14:00)
[2017-07-19 15:30] LABS: HEPATITIS B SURFACE ANTIGEN NEGATIVE (NEGATIVE)
[2017-07-19 15:48] LABS: HEPATITIS B CORE ANTIBODY NEGATIVE (NEGATIVE); HEPATITIS C VIRAL ANTIBODY NEGATIVE (NEGATIVE)
[2017-07-19] MEDS: MEROPENEM 500MG/50 ML (PMX) 50 ML IVPB (18:26)
[2017-07-19] MEDS: NEBIVOLOL 5 MG TAB PO (20:39)
[2017-07-19] MEDS: VALSARTAN 160 MG TAB PO (20:39)
[2017-07-19] MEDS: RANITIDINE 150 MG TAB PO (20:43)
[2017-07-19] MEDS: FLUOXETINE 20 MG CAP PO (20:43)
[2017-07-19] MEDS: SOD CHLORIDE 0.9% 250 ML IV ×2 (22:05→22:10)
[2017-07-20 04:05] LABS: VANCOMYCIN,RANDOM 10.2 ug/ml
[2017-07-20] MEDS: ALBUTEROL/IPRATROPIUM (NEB) 3 ML AMP HHN ×4 (05:28→19:10)
[2017-07-20] MEDS: LEVOTHYROXINE 100 MCG TAB PO (05:55)
[2017-07-20] MEDS: PANTOPRAZOLE 40 MG INJ IV (05:55)
[2017-07-20] MEDS: LACTULOSE 30ML CUP PO ×3 (05:55→21:16)
[2017-07-20] MEDS: LEVOTHYROXINE 25 MCG TAB PO (05:56)
[2017-07-20 05:58] LABS: ADD MAN DIFF? NO
[2017-07-20 06:03] LABS: ABNORMAL IP MESSAGE 1; BASOPHIL # 0.1 10^3/ul (0.0-0.1); BASOPHILS % 0.6 % (0.0-2.0); EOSINOPHILS # 0.1 10^3/ul (0.0-0.5); EOSINOPHILS % 0.9 % (0.0-7.0); HEMATOCRIT 29.3 % (42.0-52.0); HEMOGLOBIN 10.6 g/dl (14.0-18.0); LYMPHOCYTES # 0.8 10^3/ul (0.8-2.9); LYMPHOCYTES % 9.8 % (15.0-51.0); MEAN CORPUSCULAR HEMOGLOBIN 32.8 pg (29.0-33.0); MEAN CORPUSCULAR HGB CONC 36.2 g/dl (32.0-37.0); MEAN CORPUSCULAR VOLUME 90.7 fl (82.0-101.0); MEAN PLATELET VOLUME 10.5 fl (7.4-10.4); MONOCYTE # 1.1 10^3/ul (0.3-0.9); MONOCYTES % 14.1 % (0.0-11.0); NEUTROPHILS % 74.4 % (39.0-77.0); NUCLEATED RED BLOOD CELLS% 0.2 /100WBC (0.0-0.0); PLATELET COUNT 93 10^3/UL (140-415); POSITIVE DIFF @See below; RED BLOOD COUNT 3.23 10^6/ul (4.70-6.10); RED CELL DISTRIBUTION WIDTH 20.9 % (11.5-14.5)
[2017-07-20 06:03] LABS: WHITE BLOOD COUNT 8.1 10^3/ul (4.8-10.8)
[2017-07-20 06:35] LABS: ALANINE AMINOTRANSFERASE 223 IU/L (13-69); ALBUMIN 3.5 g/dl (3.3-4.9); ALBUMIN/GLOBULIN RATIO 1.25; ALKALINE PHOSPHATASE 136 IU/L (42-121); ANION GAP 21 (8-16); ASPARTATE AMINO TRANSFERASE 118 IU/L (15-46); BILIRUBIN,TOTAL 1.1 mg/dl (0.2-1.3); BLOOD UREA NITROGEN 38 mg/dl (7-20); CALCIUM 9.1 mg/dl (8.4-10.2); CARBON DIOXIDE 25 mmol/L (21-31); CHLORIDE 101 mmol/L (97-110); CREATININE 7.43 mg/dl (0.61-1.24); GLUCOSE 105 mg/dl (70-220); POTASSIUM 3.3 mmol/L (3.5-5.1); SODIUM 144 mmol/L (135-144); TOTAL PROTEIN 6.3 g/dl (6.1-8.1)
[2017-07-20] MEDS: NIFEdipine (XL) 30 MG TAB PO (08:19)
[2017-07-20] MEDS: LIOTHYRONINE 5 MCG TAB PO (08:19)
[2017-07-20] MEDS: HEPARIN 5,000 UNIT/0.5 ML VIAL SC ×2 (08:24→21:28)
[2017-07-20] MEDS: AZITHROMYCIN 500MG/NS (PMX) 250 ML IVPB (09:13)
[2017-07-20] MEDS: SEVELAMER CARBONATE 0.8 GM PKT PO ×3 (09:13→17:09)
[2017-07-20 11:46] LABS: CYTOMEGALOVIRUS ANTIBODY (IGG) <0.60 U/mL; CYTOMEGALOVIRUS ANTIBODY (IGM) <30.00 AU/mL
[2017-07-20] MEDS: VANCOMYCIN 1.5 GM in SOD CHLORIDE 0.9% 250 ML IVPB (11:47)
[2017-07-20 13:17] LABS: ANCA SCREEN NEGATIVE (NEGATIVE); MYELOPEROXIDASE ANTIBODY <1.0 AI; PROTEINASE-3 ANTIBODY <1.0 AI
[2017-07-20] MEDS: ACETAMINOPHEN 325 MG TAB PO ×2 (13:27→19:31)
[2017-07-20 14:46] LABS: ANA SCREEN NEGATIVE (NEGATIVE)
[2017-07-20] MEDS: MEROPENEM 500MG/50 ML (PMX) 50 ML IVPB (17:11)
[2017-07-20] MEDS: VALSARTAN 160 MG TAB PO (21:00)
[2017-07-20] MEDS: NEBIVOLOL 5 MG TAB PO (21:00)
[2017-07-20] MEDS: FLUOXETINE 20 MG CAP PO (21:16)
[2017-07-20] MEDS: RANITIDINE 150 MG TAB PO (21:16)
[2017-07-21] MEDS: ALBUTEROL/IPRATROPIUM (NEB) 3 ML AMP HHN ×4 (01:03→19:45)
[2017-07-21] MEDS: LEVOTHYROXINE 25 MCG TAB PO (05:15)
[2017-07-21] MEDS: LEVOTHYROXINE 100 MCG TAB PO (05:15)
[2017-07-21] MEDS: LACTULOSE 30ML CUP PO (05:15)
[2017-07-21] MEDS: PANTOPRAZOLE 40 MG INJ IV (05:15)
[2017-07-21 07:46] LABS: ADD MAN DIFF? NO
[2017-07-21 07:53] LABS: WHITE BLOOD COUNT 7.5 10^3/ul (4.8-10.8)
[2017-07-21 07:53] LABS: BASOPHILS % 0.4 % (0.0-2.0); EOSINOPHILS # 0.1 10^3/ul (0.0-0.5); EOSINOPHILS % 0.9 % (0.0-7.0); HEMATOCRIT 29.7 % (42.0-52.0); HEMOGLOBIN 10.4 g/dl (14.0-18.0); LYMPHOCYTES # 0.6 10^3/ul (0.8-2.9); LYMPHOCYTES % 8.5 % (15.0-51.0); MEAN CORPUSCULAR HEMOGLOBIN 32.1 pg (29.0-33.0); MEAN CORPUSCULAR VOLUME 91.7 fl (82.0-101.0); MEAN PLATELET VOLUME 11.5 fl (7.4-10.4); MONOCYTE # 1.1 10^3/ul (0.3-0.9); MONOCYTES % 15.1 % (0.0-11.0); NEUTROPHIL # 5.6 10^3/ul (1.6-7.5); NEUTROPHILS % 74.7 % (39.0-77.0); NUCLEATED RED BLOOD CELLS% 0.3 /100WBC (0.0-0.0); PLATELET COUNT 103 10^3/UL (140-415); RED BLOOD COUNT 3.24 10^6/ul (4.70-6.10); RED CELL DISTRIBUTION WIDTH 21.6 % (11.5-14.5)
[2017-07-21] MEDS: SEVELAMER CARBONATE 0.8 GM PKT PO ×3 (07:55→17:53)
[2017-07-21 08:15] LABS: ALANINE AMINOTRANSFERASE 171 IU/L (13-69); ALBUMIN 3.5 g/dl (3.3-4.9); ALKALINE PHOSPHATASE 120 IU/L (42-121); ANION GAP 21 (8-16); ASPARTATE AMINO TRANSFERASE 74 IU/L (15-46); BILIRUBIN,INDIRECT 0.8 mg/dl (0-1.1); BILIRUBIN,TOTAL 0.8 mg/dl (0.2-1.3); BLOOD UREA NITROGEN 44 mg/dl (7-20); CALCIUM 8.9 mg/dl (8.4-10.2); CARBON DIOXIDE 24 mmol/L (21-31); CHLORIDE 102 mmol/L (97-110); CREATININE 8.15 mg/dl (0.61-1.24); GLUCOSE 101 mg/dl (70-220); POTASSIUM 3.3 mmol/L (3.5-5.1); SODIUM 144 mmol/L (135-144); TOTAL PROTEIN 6.4 g/dl (6.1-8.1)
[2017-07-21 08:55] LABS: Allen Test ACCEPTAB; Arterial Base Excess -1.8 mmol/L (-3.0-3); Arterial COHb 0.7 % (0.0-3.0); Arterial Fraction of Oxyhgb 92.1 % (93.0-99.0); Arterial HCO3 22.2 mmol/L (22.0-26.0); Arterial MetHb 0.3 % (0.0-1.5); Arterial Total Hemglobin 11.6 g/dl (12.0-18.0); Arterial pCO2 35.2 mmhg (35-45); MODE NASAL CANNULA; Site Right Radial
[2017-07-21] MEDS: LIOTHYRONINE 5 MCG TAB PO (09:00)
[2017-07-21] MEDS: NIFEdipine (XL) 30 MG TAB PO (09:00)
[2017-07-21] MEDS: IOHEXOL 14.3 MG(I)/ML (ADULT) BTL PO (09:41)
[2017-07-21] MEDS: AZITHROMYCIN 500MG/NS (PMX) 250 ML IVPB (09:41)
[2017-07-21] MEDS: HEPARIN 5,000 UNIT/0.5 ML VIAL SC ×2 (09:49→22:20)
[2017-07-21] MEDS: ACETAMINOPHEN 325 MG TAB PO (10:58)
[2017-07-21] MEDS: LIDOCAINE 1% (MPF) 5 ML VIAL SC (12:30)
[2017-07-21] MEDS: IOHEXOL 300MG/ML 30 ML BTL (13:15)
[2017-07-21] MEDS: SOD CHLORIDE 0.9% 0 ML (13:15)
[2017-07-21] MEDS: POTASSIUM CHLORIDE (SR) 20 MEQ TAB PO (14:30)
[2017-07-21] MEDS: ALBUMIN HUMAN 25% 100 ML IV ×3 (16:28→18:30)
[2017-07-21] MEDS: VALSARTAN 160 MG TAB PO (21:00)
[2017-07-21] MEDS: NEBIVOLOL 5 MG TAB PO (21:00)
[2017-07-21 21:04] LABS: ACETYLCHOLINE RECEPTOR AB <0.30 nmol/L
[2017-07-21] MEDS: RIFAXIMIN 550 MG TAB PO (21:54)
[2017-07-21] MEDS: FLUOXETINE 20 MG CAP PO (21:54)
[2017-07-21] MEDS: RANITIDINE 150 MG TAB PO (21:54)
[2017-07-21] MEDS: MEROPENEM 500MG/50 ML (PMX) 50 ML IVPB (22:50)
[2017-07-22] MEDS: ALBUTEROL/IPRATROPIUM (NEB) 3 ML AMP HHN ×4 (01:48→20:44)
[2017-07-22] MEDS: LEVOTHYROXINE 100 MCG TAB PO (05:16)
[2017-07-22] MEDS: PANTOPRAZOLE 40 MG INJ IV (05:17)
[2017-07-22] MEDS: LEVOTHYROXINE 25 MCG TAB PO (05:17)
[2017-07-22 07:00] LABS: ADD MAN DIFF? NO
[2017-07-22 07:05] LABS: ABNORMAL IP MESSAGE 1; BASOPHILS % 0.5 % (0.0-2.0); EOSINOPHILS # 0.1 10^3/ul (0.0-0.5); EOSINOPHILS % 1.5 % (0.0-7.0); HEMATOCRIT 27.1 % (42.0-52.0); HEMOGLOBIN 9.7 g/dl (14.0-18.0); LYMPHOCYTES # 0.7 10^3/ul (0.8-2.9); LYMPHOCYTES % 11.3 % (15.0-51.0); MEAN CORPUSCULAR HEMOGLOBIN 32.4 pg (29.0-33.0); MEAN CORPUSCULAR HGB CONC 35.8 g/dl (32.0-37.0); MEAN CORPUSCULAR VOLUME 90.6 fl (82.0-101.0); MEAN PLATELET VOLUME 10.5 fl (7.4-10.4); MONOCYTE # 0.7 10^3/ul (0.3-0.9); MONOCYTES % 12.1 % (0.0-11.0); NEUTROPHIL # 4.4 10^3/ul (1.6-7.5); NEUTROPHILS % 74.4 % (39.0-77.0); NUCLEATED RED BLOOD CELLS% 0.3 /100WBC (0.0-0.0); POSITIVE DIFF @See below; RED BLOOD COUNT 2.99 10^6/ul (4.70-6.10); RED CELL DISTRIBUTION WIDTH 20.8 % (11.5-14.5)
[2017-07-22 07:08] LABS: PLATELET COUNT 75 10^3/UL (140-415)
[2017-07-22 07:36] LABS: ALANINE AMINOTRANSFERASE 121 IU/L (13-69); ALBUMIN 3.7 g/dl (3.3-4.9); ALBUMIN/GLOBULIN RATIO 1.42; ALKALINE PHOSPHATASE 98 IU/L (42-121); ANION GAP 20 (8-16); ASPARTATE AMINO TRANSFERASE 41 IU/L (15-46); BLOOD UREA NITROGEN 30 mg/dl (7-20); CALCIUM 9.1 mg/dl (8.4-10.2); CARBON DIOXIDE 27 mmol/L (21-31); CHLORIDE 101 mmol/L (97-110); CREATININE 6.81 mg/dl (0.61-1.24); GLUCOSE 104 mg/dl (70-220); POTASSIUM 3.6 mmol/L (3.5-5.1); SODIUM 144 mmol/L (135-144); TOTAL PROTEIN 6.3 g/dl (6.1-8.1)
[2017-07-22] MEDS: SEVELAMER CARBONATE 0.8 GM PKT PO ×3 (08:44→17:07)
[2017-07-22] MEDS: NIFEdipine (XL) 30 MG TAB PO (08:44)
[2017-07-22] MEDS: LIOTHYRONINE 5 MCG TAB PO (08:44)
[2017-07-22] MEDS: RIFAXIMIN 550 MG TAB PO ×2 (08:44→21:12)
[2017-07-22] MEDS: HEPARIN 5,000 UNIT/0.5 ML VIAL SC ×2 (08:46→21:10)
[2017-07-22] MEDS: AZITHROMYCIN 500MG/NS (PMX) 250 ML IVPB (08:47)
[2017-07-22] MEDS: MEROPENEM 500MG/50 ML (PMX) 50 ML IVPB (17:07)
[2017-07-22] MEDS: RANITIDINE 150 MG TAB PO (21:00)
[2017-07-22] MEDS: FLUOXETINE 20 MG CAP PO (21:12)
[2017-07-22] MEDS: ACETAMINOPHEN 325 MG TAB PO (21:13)
[2017-07-22] MEDS: NEBIVOLOL 5 MG TAB PO (21:17)
[2017-07-23] MEDS: ALBUTEROL/IPRATROPIUM (NEB) 3 ML AMP HHN ×4 (02:24→19:57)
[2017-07-23] MEDS: LEVOTHYROXINE 25 MCG TAB PO (05:35)
[2017-07-23] MEDS: PANTOPRAZOLE 40 MG INJ IV (05:35)
[2017-07-23] MEDS: LEVOTHYROXINE 100 MCG TAB PO (05:36)
[2017-07-23 06:47] LABS: VANCOMYCIN,RANDOM 13.4 ug/ml
[2017-07-23] MEDS: SEVELAMER CARBONATE 0.8 GM PKT PO ×3 (08:19→16:49)
[2017-07-23] MEDS: RIFAXIMIN 550 MG TAB PO ×2 (08:19→20:51)
[2017-07-23] MEDS: LIOTHYRONINE 5 MCG TAB PO (08:19)
[2017-07-23] MEDS: AZITHROMYCIN 500MG/NS (PMX) 250 ML IVPB (08:20)
[2017-07-23] MEDS: HEPARIN 5,000 UNIT/0.5 ML VIAL SC ×2 (08:21→20:59)
[2017-07-23] MEDS: VANCOMYCIN 1.25 GM in SOD CHLORIDE 0.9% 250 ML IVPB (12:00)
[2017-07-23 16:21] LABS: PROCALCITONIN 1.42 ng/mL (<0.10)
[2017-07-23] MEDS: MEROPENEM 500MG/50 ML (PMX) 50 ML IVPB (16:47)
[2017-07-23] MEDS: FLUOXETINE 20 MG CAP PO (20:51)
[2017-07-23] MEDS: NEBIVOLOL 5 MG TAB PO (20:51)
[2017-07-23] MEDS: RANITIDINE 150 MG TAB PO (20:52)
[2017-07-24] MEDS: ALBUTEROL/IPRATROPIUM (NEB) 3 ML AMP HHN ×4 (01:49→20:01)
[2017-07-24] MEDS: PANTOPRAZOLE 40 MG INJ IV (05:38)
[2017-07-24] MEDS: LEVOTHYROXINE 100 MCG TAB PO (05:39)
[2017-07-24] MEDS: LEVOTHYROXINE 25 MCG TAB PO (05:40)
[2017-07-24] MEDS: SEVELAMER CARBONATE 0.8 GM PKT PO ×3 (09:22→17:38)
[2017-07-24 09:45] LABS: ADD MAN DIFF? NO
[2017-07-24 09:54] LABS: ABNORMAL IP MESSAGE 1; BASOPHIL # 0.1 10^3/ul (0.0-0.1); BASOPHILS % 0.9 % (0.0-2.0); EOSINOPHILS % 0.3 % (0.0-7.0); HEMATOCRIT 30.5 % (42.0-52.0); HEMOGLOBIN 10.7 g/dl (14.0-18.0); LYMPHOCYTES # 0.7 10^3/ul (0.8-2.9); LYMPHOCYTES % 12.2 % (15.0-51.0); MEAN CORPUSCULAR HEMOGLOBIN 31.8 pg (29.0-33.0); MEAN CORPUSCULAR HGB CONC 35.1 g/dl (32.0-37.0); MEAN CORPUSCULAR VOLUME 90.8 fl (82.0-101.0); MONOCYTE # 0.9 10^3/ul (0.3-0.9); MONOCYTES % 15.4 % (0.0-11.0); NEUTROPHIL # 4.1 10^3/ul (1.6-7.5); NEUTROPHILS % 70.9 % (39.0-77.0); NUCLEATED RED BLOOD CELLS% 0.5 /100WBC (0.0-0.0); POSITIVE DIFF @See below; RED BLOOD COUNT 3.36 10^6/ul (4.70-6.10); RED CELL DISTRIBUTION WIDTH 19.9 % (11.5-14.5)
[2017-07-24 09:54] LABS: WHITE BLOOD COUNT 5.8 10^3/ul (4.8-10.8)
[2017-07-24 10:06] LABS: PLATELET COUNT 74 10^3/UL (140-415)
[2017-07-24 11:00] LABS: ALANINE AMINOTRANSFERASE 90 IU/L (13-69); ALBUMIN/GLOBULIN RATIO 1.66; ALKALINE PHOSPHATASE 100 IU/L (42-121); ANION GAP 24 (8-16); ASPARTATE AMINO TRANSFERASE 28 IU/L (15-46); BILIRUBIN,INDIRECT 0.8 mg/dl (0-1.1); BILIRUBIN,TOTAL 0.8 mg/dl (0.2-1.3); BLOOD UREA NITROGEN 45 mg/dl (7-20); CALCIUM 9.7 mg/dl (8.4-10.2); CARBON DIOXIDE 22 mmol/L (21-31); CHLORIDE 101 mmol/L (97-110); CREATININE 8.85 mg/dl (0.61-1.24); GLUCOSE 81 mg/dl (70-220); POTASSIUM 4.3 mmol/L (3.5-5.1); SODIUM 143 mmol/L (135-144); TOTAL PROTEIN 6.4 g/dl (6.1-8.1)
[2017-07-24] MEDS: HEPARIN 5,000 UNIT/0.5 ML VIAL SC (13:07)
[2017-07-24] MEDS: RIFAXIMIN 550 MG TAB PO ×2 (13:09→22:14)
[2017-07-24] MEDS: AZITHROMYCIN 500MG/NS (PMX) 250 ML IVPB (13:09)
[2017-07-24] MEDS: LIOTHYRONINE 5 MCG TAB PO (13:09)
[2017-07-24] MEDS: NIFEdipine (XL) 30 MG TAB PO (13:09)
[2017-07-24 16:18] LABS: CANCER ANTIGEN 19-9 33.6 U/ml (0.0-37.0)
[2017-07-24 16:21] LABS: ALPHA FETOPROTEIN 2.81 IU/L (0.00-7.21)
[2017-07-24] MEDS: MEROPENEM 500MG/50 ML (PMX) 50 ML IVPB (17:37)
[2017-07-24] MEDS ORDERED: LACTULOSE 30ML CUP PO (18:30)
[2017-07-24 20:05] LABS: AMMONIA 18 umol/l (9-30)
[2017-07-24] MEDS: RANITIDINE 150 MG TAB PO (22:14)
[2017-07-24] MEDS: FLUOXETINE 20 MG CAP PO (22:14)
[2017-07-24] MEDS: NEBIVOLOL 5 MG TAB PO (22:15)
[2017-07-25] MEDS: ALBUTEROL/IPRATROPIUM (NEB) 3 ML AMP HHN ×4 (01:26→20:15)
[2017-07-25] MEDS: PANTOPRAZOLE 40 MG INJ IV (06:09)
[2017-07-25] MEDS: LEVOTHYROXINE 25 MCG TAB PO (06:09)
[2017-07-25] MEDS: LEVOTHYROXINE 100 MCG TAB PO (06:26)
[2017-07-25 07:30] LABS: ADD MAN DIFF? NO
[2017-07-25 08:23] LABS: ABNORMAL IP MESSAGE 1; BASOPHILS % 0.6 % (0.0-2.0); EOSINOPHILS # 0.1 10^3/ul (0.0-0.5); EOSINOPHILS % 0.9 % (0.0-7.0); HEMATOCRIT 29.2 % (42.0-52.0); HEMOGLOBIN 10.4 g/dl (14.0-18.0); LYMPHOCYTES # 0.7 10^3/ul (0.8-2.9); LYMPHOCYTES % 10.6 % (15.0-51.0); MEAN CORPUSCULAR HEMOGLOBIN 31.8 pg (29.0-33.0); MEAN CORPUSCULAR HGB CONC 35.6 g/dl (32.0-37.0); MEAN CORPUSCULAR VOLUME 89.3 fl (82.0-101.0); MEAN PLATELET VOLUME 12.4 fl (7.4-10.4); MONOCYTE # 1.1 10^3/ul (0.3-0.9); MONOCYTES % 16.2 % (0.0-11.0); NEUTROPHIL # 4.9 10^3/ul (1.6-7.5); NEUTROPHILS % 71.3 % (39.0-77.0); PLATELET COUNT 99 10^3/UL (140-415); POSITIVE DIFF @See below; RED BLOOD COUNT 3.27 10^6/ul (4.70-6.10); RED CELL DISTRIBUTION WIDTH 19.9 % (11.5-14.5)
[2017-07-25 08:23] LABS: WHITE BLOOD COUNT 6.8 10^3/ul (4.8-10.8)
[2017-07-25] MEDS: NIFEdipine (XL) 30 MG TAB PO (09:00)
[2017-07-25] MEDS: LIOTHYRONINE 5 MCG TAB PO (09:34)
[2017-07-25] MEDS: SEVELAMER CARBONATE 0.8 GM PKT PO ×3 (09:34→16:55)
[2017-07-25 10:57] LABS: ANION GAP 23 (8-16); BLOOD UREA NITROGEN 43 mg/dl (7-20); CALCIUM 9.6 mg/dl (8.4-10.2); CARBON DIOXIDE 23 mmol/L (21-31); CHLORIDE 101 mmol/L (97-110); CREATININE 8.16 mg/dl (0.61-1.24); GLUCOSE 107 mg/dl (70-220); PHOSPHORUS 5.8 mg/dl (2.5-4.9); POTASSIUM 3.7 mmol/L (3.5-5.1); SODIUM 143 mmol/L (135-144)
[2017-07-25] MEDS: LIDOCAINE 1% (MPF) 5 ML VIAL (11:25)
[2017-07-25 12:54] LABS: ANA SCREEN NEGATIVE (NEGATIVE)
[2017-07-25 12:56] LABS: FLD MN% 87.1 %; FLD PMN% 12.9 %; FLD RBC 17000 /uL; FLD WBC 54 /cmm; FLUID GLUCOSE 113 mg/dl; FLUID TOTAL PROTEIN 2.8 g/dl; FLUID TYPE PARACENTESIS FLUID
[2017-07-25 14:11] LABS: CSF RBC 0 /uL (0-0); FLD CLARITY HAZY; FLD COLOR AMBER
[2017-07-25 14:11] LABS: FLD TYPE PERITONEAL
[2017-07-25 14:27] LABS: CSF CLARITY CLEAR; CSF WBC 1 /cmm (0-10); CSF#TUBE COUNT TUBE#4; CSF#TUBES REC'D 4
[2017-07-25 14:27] LABS: CSF COLOR COLORLESS
[2017-07-25 14:57] LABS: RAPID PLASMA REAGIN NONREACTIVE (NR)
[2017-07-25 16:36] LABS: ALPHA 1 ANTITRYPSIN 170 mg/dL (83-199); CERULOPLASMIN 27 mg/dL (18-36)
[2017-07-25] MEDS: MEROPENEM 500MG/50 ML (PMX) 50 ML IVPB (16:50)
[2017-07-25 19:11] LABS: TOTAL PROTEIN,CSF 35 mg/dl (12-60)
[2017-07-25 19:11] LABS: GLUCOSE,CSF 86 mg/dl (50-80)
[2017-07-25] MEDS: NEBIVOLOL 5 MG TAB PO (21:00)
[2017-07-25] MEDS: FLUOXETINE 20 MG CAP PO (21:59)
[2017-07-25] MEDS: RANITIDINE 150 MG TAB PO (21:59)
[2017-07-26] MEDS: ALBUTEROL/IPRATROPIUM (NEB) 3 ML AMP HHN ×4 (02:14→20:02)
[2017-07-26] MEDS: LEVOTHYROXINE 100 MCG TAB PO (06:17)
[2017-07-26] MEDS: LEVOTHYROXINE 25 MCG TAB PO (06:17)
[2017-07-26 07:33] LABS: ADD MAN DIFF? NO
[2017-07-26 07:48] LABS: BASOPHIL # 0.1 10^3/ul (0.0-0.1); BASOPHILS % 0.8 % (0.0-2.0); EOSINOPHILS % 0.5 % (0.0-7.0); HEMATOCRIT 30.2 % (42.0-52.0); HEMOGLOBIN 10.5 g/dl (14.0-18.0); LYMPHOCYTES # 0.7 10^3/ul (0.8-2.9); LYMPHOCYTES % 10.7 % (15.0-51.0); MEAN CORPUSCULAR HEMOGLOBIN 31.3 pg (29.0-33.0); MEAN CORPUSCULAR HGB CONC 34.8 g/dl (32.0-37.0); MEAN CORPUSCULAR VOLUME 89.9 fl (82.0-101.0); MEAN PLATELET VOLUME 11.4 fl (7.4-10.4); MONOCYTE # 0.9 10^3/ul (0.3-0.9); MONOCYTES % 15.5 % (0.0-11.0); NEUTROPHIL # 4.4 10^3/ul (1.6-7.5); NEUTROPHILS % 72.2 % (39.0-77.0); NUCLEATED RED BLOOD CELLS% 0.3 /100WBC (0.0-0.0); PLATELET COUNT 129 10^3/UL (140-415); RED BLOOD COUNT 3.36 10^6/ul (4.70-6.10)
[2017-07-26 07:48] LABS: WHITE BLOOD COUNT 6.1 10^3/ul (4.8-10.8)
[2017-07-26 07:53] LABS: INR 1.26; PT RATIO 1.3
[2017-07-26 08:03] LABS: ANION GAP 23 (8-16); BLOOD UREA NITROGEN 50 mg/dl (7-20); CALCIUM 9.5 mg/dl (8.4-10.2); CARBON DIOXIDE 25 mmol/L (21-31); CHLORIDE 99 mmol/L (97-110); CREATININE 8.85 mg/dl (0.61-1.24); GLUCOSE 100 mg/dl (70-220); PHOSPHORUS 5.8 mg/dl (2.5-4.9); POTASSIUM 3.6 mmol/L (3.5-5.1); SODIUM 143 mmol/L (135-144)
[2017-07-26] MEDS: SEVELAMER CARBONATE 0.8 GM PKT PO ×3 (08:43→17:08)
[2017-07-26] MEDS: NIFEdipine (XL) 30 MG TAB PO (09:00)
[2017-07-26] MEDS: LIOTHYRONINE 5 MCG TAB PO (10:02)
[2017-07-26] MEDS: HEPARIN 5,000 UNIT/0.5 ML VIAL SC ×2 (10:03→20:57)
[2017-07-26] MEDS ORDERED: ALBUMIN HUMAN 25% 100 ML IV ×2 (14:30)
[2017-07-26] MEDS: MEROPENEM 500MG/50 ML (PMX) 50 ML IVPB (16:44)
[2017-07-26] MEDS: NEBIVOLOL 5 MG TAB PO (20:53)
[2017-07-26] MEDS: RANITIDINE 150 MG TAB PO (20:53)
[2017-07-26] MEDS: FLUOXETINE 20 MG CAP PO (20:55)
[2017-07-27] MEDS: ALBUTEROL/IPRATROPIUM (NEB) 3 ML AMP HHN ×4 (01:27→20:08)
[2017-07-27] MEDS: LEVOTHYROXINE 100 MCG TAB PO (06:39)
[2017-07-27] MEDS: LEVOTHYROXINE 25 MCG TAB PO (06:39)
[2017-07-27 08:47] LABS: ADD MAN DIFF? NO
[2017-07-27 08:52] LABS: WHITE BLOOD COUNT 5.9 10^3/ul (4.8-10.8)
[2017-07-27 08:52] LABS: ABNORMAL IP MESSAGE 1; BASOPHILS % 0.5 % (0.0-2.0); EOSINOPHILS # 0.1 10^3/ul (0.0-0.5); EOSINOPHILS % 0.8 % (0.0-7.0); HEMATOCRIT 29.7 % (42.0-52.0); HEMOGLOBIN 10.3 g/dl (14.0-18.0); LYMPHOCYTES # 0.5 10^3/ul (0.8-2.9); LYMPHOCYTES % 7.8 % (15.0-51.0); MEAN CORPUSCULAR HEMOGLOBIN 31.5 pg (29.0-33.0); MEAN CORPUSCULAR HGB CONC 34.7 g/dl (32.0-37.0); MEAN CORPUSCULAR VOLUME 90.8 fl (82.0-101.0); MEAN PLATELET VOLUME 10.3 fl (7.4-10.4); MONOCYTE # 0.9 10^3/ul (0.3-0.9); MONOCYTES % 14.7 % (0.0-11.0); NEUTROPHIL # 4.5 10^3/ul (1.6-7.5); NEUTROPHILS % 75.9 % (39.0-77.0); NUCLEATED RED BLOOD CELLS% 0.7 /100WBC (0.0-0.0); PLATELET COUNT 124 10^3/UL (140-415); POSITIVE DIFF @See below; RED BLOOD COUNT 3.27 10^6/ul (4.70-6.10); RED CELL DISTRIBUTION WIDTH 20.3 % (11.5-14.5)
[2017-07-27] MEDS: SEVELAMER CARBONATE 0.8 GM PKT PO ×3 (08:59→17:30)
[2017-07-27] MEDS: NIFEdipine (XL) 30 MG TAB PO (09:00)
[2017-07-27] MEDS: LIOTHYRONINE 5 MCG TAB PO (09:00)
[2017-07-27] MEDS: HEPARIN 5,000 UNIT/0.5 ML VIAL SC (09:01)
[2017-07-27 09:11] LABS: PHOSPHORUS 4.6 mg/dl (2.5-4.9)
[2017-07-27 09:14] LABS: ALANINE AMINOTRANSFERASE 54 IU/L (13-69); ALBUMIN 3.5 g/dl (3.3-4.9); ALBUMIN/GLOBULIN RATIO 1.25; ALKALINE PHOSPHATASE 95 IU/L (42-121); ANION GAP 19 (8-16); ASPARTATE AMINO TRANSFERASE 23 IU/L (15-46); BILIRUBIN,INDIRECT 0.6 mg/dl (0-1.1); BILIRUBIN,TOTAL 0.6 mg/dl (0.2-1.3); BLOOD UREA NITROGEN 38 mg/dl (7-20); CARBON DIOXIDE 26 mmol/L (21-31); CHLORIDE 101 mmol/L (97-110); CREATININE 7.52 mg/dl (0.61-1.24); GLUCOSE 88 mg/dl (70-220); POTASSIUM 3.3 mmol/L (3.5-5.1); SODIUM 143 mmol/L (135-144); TOTAL PROTEIN 6.3 g/dl (6.1-8.1)
[2017-07-27 09:31] LABS: CHOLESTEROL 107 mg/dl (100-200)
[2017-07-27 09:31] LABS: CHOL/HDL RATIO 2.8 RATIO; HDL CHOLESTEROL 38 mg/dl (30-78); LDL CHOLESTEROL,CALCULATED 54 mg/dl; TRIGLYCERIDES 77 mg/dl (0-149)
[2017-07-27] MEDS: VANCOMYCIN 1.25 GM in SOD CHLORIDE 0.9% 250 ML IVPB (11:10)
[2017-07-27] MEDS: MEROPENEM 500MG/50 ML (PMX) 50 ML IVPB (17:33)
[2017-07-27] MEDS: NEBIVOLOL 5 MG TAB PO (20:59)
[2017-07-27] MEDS: FLUOXETINE 20 MG CAP PO (20:59)
[2017-07-27] MEDS: RANITIDINE 150 MG TAB PO (20:59)
[2017-07-28] MEDS: ALBUTEROL/IPRATROPIUM (NEB) 3 ML AMP HHN ×4 (01:51→19:14)
[2017-07-28] MEDS: LEVOTHYROXINE 25 MCG TAB PO (06:19)
[2017-07-28] MEDS: LEVOTHYROXINE 100 MCG TAB PO (06:19)
[2017-07-28] MEDS ORDERED: CEFAZOLIN 1 GM INJ (07:00)
[2017-07-28] MEDS: SEVELAMER CARBONATE 0.8 GM PKT PO ×3 (07:31→16:46)
[2017-07-28 08:28] LABS: ADD MAN DIFF? NO
[2017-07-28 08:36] LABS: BASOPHIL # 0.1 10^3/ul (0.0-0.1); BASOPHILS % 0.8 % (0.0-2.0); EOSINOPHILS # 0.1 10^3/ul (0.0-0.5); EOSINOPHILS % 1.1 % (0.0-7.0); HEMATOCRIT 29.6 % (42.0-52.0); HEMOGLOBIN 10.2 g/dl (14.0-18.0); LYMPHOCYTES # 0.6 10^3/ul (0.8-2.9); LYMPHOCYTES % 10.3 % (15.0-51.0); MEAN CORPUSCULAR HEMOGLOBIN 31.5 pg (29.0-33.0); MEAN CORPUSCULAR HGB CONC 34.5 g/dl (32.0-37.0); MEAN CORPUSCULAR VOLUME 91.4 fl (82.0-101.0); MEAN PLATELET VOLUME 10.8 fl (7.4-10.4); MONOCYTE # 0.9 10^3/ul (0.3-0.9); NEUTROPHIL # 4.6 10^3/ul (1.6-7.5); NEUTROPHILS % 73.3 % (39.0-77.0); NUCLEATED RED BLOOD CELLS% 0.3 /100WBC (0.0-0.0); PLATELET COUNT 150 10^3/UL (140-415); RED BLOOD COUNT 3.24 10^6/ul (4.70-6.10); RED CELL DISTRIBUTION WIDTH 20.2 % (11.5-14.5)
[2017-07-28 08:36] LABS: WHITE BLOOD COUNT 6.2 10^3/ul (4.8-10.8)
[2017-07-28] MEDS: LIOTHYRONINE 5 MCG TAB PO (09:00)
[2017-07-28] MEDS: NIFEdipine (XL) 30 MG TAB PO (09:00)
[2017-07-28] MEDS ORDERED: HEPARIN 1000 UNITS/ML 10 ML INJ (09:36)
[2017-07-28 10:30] LABS: ANION GAP 20 (8-16); BLOOD UREA NITROGEN 29 mg/dl (7-20); CALCIUM 9.1 mg/dl (8.4-10.2); CARBON DIOXIDE 27 mmol/L (21-31); CHLORIDE 100 mmol/L (97-110); GLUCOSE 85 mg/dl (70-220); PHOSPHORUS 4.2 mg/dl (2.5-4.9); POTASSIUM 3.4 mmol/L (3.5-5.1); SODIUM 144 mmol/L (135-144)
[2017-07-28] MEDS ORDERED: ROPIVACAINE 0.5 % 30 ML VIAL (11:21)
[2017-07-28] MEDS ORDERED: FENTAnyl 50 MCG/ML VIAL (11:37)
[2017-07-28] MEDS ORDERED: hydrALAzine 20 MG INJ (11:56)
[2017-07-28] MEDS: LIDOCAINE 1% (MPF) 30 ML INJ (11:57)
[2017-07-28] MEDS: HEPARIN 5,000 UNIT/0.5 ML VIAL SC (11:58)
[2017-07-28] MEDS ORDERED: THROMBIN 5000 UNIT VIAL (12:02)
[2017-07-28] MEDS ORDERED: GELATIN SIZE 100 SPONGE (12:02)
[2017-07-28] MEDS ORDERED: ONDANSETRON 4 MG INJ IV (12:30)
[2017-07-28] MEDS ORDERED: DIPHENHYDRAMINE 50 MG INJ IV (12:30)
[2017-07-28] MEDS: hydrALAzine 20 MG INJ IV ×2 (12:41→12:49)
[2017-07-28] MEDS: FENTAnyl 50 MCG/ML VIAL IV (12:41)
[2017-07-28] MEDS: POTASSIUM CHLORIDE 20 MEQ POWDER FOR ORAL SOLN PO (16:45)
[2017-07-28] MEDS: RANITIDINE 150 MG TAB PO (20:40)
[2017-07-28] MEDS: FLUOXETINE 20 MG CAP PO (20:40)
[2017-07-28] MEDS: ACETAMINOPHEN 325 MG TAB PO (20:42)
[2017-07-28] MEDS: NEBIVOLOL 5 MG TAB PO (20:48)
[2017-07-29] MEDS: ALBUTEROL/IPRATROPIUM (NEB) 3 ML AMP HHN ×4 (01:00→20:00)
[2017-07-29] MEDS: LEVOTHYROXINE 100 MCG TAB PO (05:42)
[2017-07-29] MEDS: LEVOTHYROXINE 25 MCG TAB PO (05:42)
[2017-07-29 07:26] LABS: ADD MAN DIFF? NO
[2017-07-29 07:36] LABS: ABNORMAL IP MESSAGE 1; BASOPHIL # 0.1 10^3/ul (0.0-0.1); BASOPHILS % 0.8 % (0.0-2.0); EOSINOPHILS # 0.1 10^3/ul (0.0-0.5); EOSINOPHILS % 1.7 % (0.0-7.0); HEMATOCRIT 28.1 % (42.0-52.0); HEMOGLOBIN 9.5 g/dl (14.0-18.0); LYMPHOCYTES # 0.6 10^3/ul (0.8-2.9); LYMPHOCYTES % 9.1 % (15.0-51.0); MEAN CORPUSCULAR HGB CONC 33.8 g/dl (32.0-37.0); MEAN CORPUSCULAR VOLUME 91.8 fl (82.0-101.0); MEAN PLATELET VOLUME 10.8 fl (7.4-10.4); MONOCYTE # 0.8 10^3/ul (0.3-0.9); MONOCYTES % 13.4 % (0.0-11.0); NEUTROPHIL # 4.5 10^3/ul (1.6-7.5); NEUTROPHILS % 74.7 % (39.0-77.0); PLATELET COUNT 127 10^3/UL (140-415); POSITIVE DIFF @See below; RED BLOOD COUNT 3.06 10^6/ul (4.70-6.10); RED CELL DISTRIBUTION WIDTH 20.5 % (11.5-14.5)
[2017-07-29 07:45] LABS: ANION GAP 17 (8-16); BLOOD UREA NITROGEN 34 mg/dl (7-20); CARBON DIOXIDE 25 mmol/L (21-31); CHLORIDE 103 mmol/L (97-110); CREATININE 6.77 mg/dl (0.61-1.24); GLUCOSE 72 mg/dl (70-220); POTASSIUM 3.7 mmol/L (3.5-5.1); SODIUM 141 mmol/L (135-144)
[2017-07-29] MEDS: SEVELAMER CARBONATE 0.8 GM PKT PO ×3 (10:01→19:32)
[2017-07-29] MEDS: NIFEdipine (XL) 30 MG TAB PO (10:02)
[2017-07-29] MEDS: LIOTHYRONINE 5 MCG TAB PO (10:02)
[2017-07-29] MEDS: ACETAMINOPHEN 325 MG TAB PO (13:17)
[2017-07-29] MEDS ORDERED: HYDROCODONE/APAP (7.5/325) TAB PO (13:30)
[2017-07-29] MEDS ORDERED: ALBUMIN HUMAN 5% 250 ML IV (17:30)
[2017-07-29] MEDS: HYDROCODONE/APAP (7.5/325) TAB PO (19:34)
[2017-07-29] MEDS: NEBIVOLOL 5 MG TAB PO (21:00)
[2017-07-29] MEDS: RANITIDINE 150 MG TAB PO (21:58)
[2017-07-29] MEDS: FLUOXETINE 20 MG CAP PO (21:58)
[2017-07-30] MEDS: ALBUTEROL/IPRATROPIUM (NEB) 3 ML AMP HHN ×4 (01:40→19:43)
[2017-07-30] MEDS: LEVOTHYROXINE 100 MCG TAB PO (05:29)
[2017-07-30] MEDS: LEVOTHYROXINE 25 MCG TAB PO (05:30)
[2017-07-30 08:06] LABS: ADD MAN DIFF? NO
[2017-07-30 08:10] LABS: WHITE BLOOD COUNT 6.8 10^3/ul (4.8-10.8)
[2017-07-30 08:10] LABS: ABNORMAL IP MESSAGE 1; BASOPHILS % 0.4 % (0.0-2.0); EOSINOPHILS # 0.1 10^3/ul (0.0-0.5); EOSINOPHILS % 1.3 % (0.0-7.0); HEMOGLOBIN 9.7 g/dl (14.0-18.0); LYMPHOCYTES # 0.5 10^3/ul (0.8-2.9); LYMPHOCYTES % 7.2 % (15.0-51.0); MEAN CORPUSCULAR HEMOGLOBIN 31.5 pg (29.0-33.0); MEAN CORPUSCULAR HGB CONC 34.6 g/dl (32.0-37.0); MEAN CORPUSCULAR VOLUME 90.9 fl (82.0-101.0); MEAN PLATELET VOLUME 11.2 fl (7.4-10.4); MONOCYTE # 0.9 10^3/ul (0.3-0.9); MONOCYTES % 12.7 % (0.0-11.0); NEUTROPHIL # 5.3 10^3/ul (1.6-7.5); NEUTROPHILS % 77.8 % (39.0-77.0); PLATELET COUNT 125 10^3/UL (140-415); POSITIVE DIFF @See below; RED BLOOD COUNT 3.08 10^6/ul (4.70-6.10); RED CELL DISTRIBUTION WIDTH 19.7 % (11.5-14.5)
[2017-07-30] MEDS: NIFEdipine (XL) 30 MG TAB PO (08:14)
[2017-07-30] MEDS: LIOTHYRONINE 5 MCG TAB PO (08:14)
[2017-07-30] MEDS: SEVELAMER CARBONATE 0.8 GM PKT PO ×3 (08:14→18:36)
[2017-07-30 08:30] LABS: ALANINE AMINOTRANSFERASE 42 IU/L (13-69); ALBUMIN/GLOBULIN RATIO 1.07; ALKALINE PHOSPHATASE 111 IU/L (42-121); ANION GAP 14 (8-16); ASPARTATE AMINO TRANSFERASE 38 IU/L (15-46); BILIRUBIN,INDIRECT 0.7 mg/dl (0-1.1); BILIRUBIN,TOTAL 0.7 mg/dl (0.2-1.3); BLOOD UREA NITROGEN 27 mg/dl (7-20); CALCIUM 8.7 mg/dl (8.4-10.2); CARBON DIOXIDE 29 mmol/L (21-31); CHLORIDE 102 mmol/L (97-110); CREATININE 5.87 mg/dl (0.61-1.24); GLUCOSE 81 mg/dl (70-220); POTASSIUM 3.1 mmol/L (3.5-5.1); SODIUM 142 mmol/L (135-144); TOTAL PROTEIN 5.8 g/dl (6.1-8.1)
[2017-07-30] MEDS: POTASSIUM CHLORIDE (SR) 20 MEQ TAB PO (11:15)
[2017-07-30] MEDS: ACETAMINOPHEN 325 MG TAB PO (20:57)
[2017-07-30] MEDS: FLUOXETINE 20 MG CAP PO (20:59)
[2017-07-30] MEDS: RANITIDINE 150 MG TAB PO (20:59)
[2017-07-30] MEDS: NEBIVOLOL 5 MG TAB PO (21:00)
[2017-07-31] MEDS: ALBUTEROL/IPRATROPIUM (NEB) 3 ML AMP HHN ×2 (02:44→08:33)
[2017-07-31] MEDS: LEVOTHYROXINE 100 MCG TAB PO (05:50)
[2017-07-31] MEDS: LEVOTHYROXINE 25 MCG TAB PO (05:50)
[2017-07-31] MEDS: SEVELAMER CARBONATE 0.8 GM PKT PO ×3 (08:05→18:17)
[2017-07-31] MEDS: LIOTHYRONINE 5 MCG TAB PO (09:14)
[2017-07-31] MEDS: NIFEdipine (XL) 30 MG TAB PO (09:17)
[2017-07-31] MEDS: HEPARIN 5,000 UNIT/0.5 ML VIAL SC ×3 (09:58→22:00)
[2017-07-31] MEDS: ACETAMINOPHEN 325 MG TAB PO (13:37)
[2017-07-31] MEDS: FLUOXETINE 20 MG CAP PO (21:00)
[2017-07-31] MEDS: RANITIDINE 150 MG TAB PO (21:00)
[2017-07-31] MEDS: NEBIVOLOL 5 MG TAB PO (21:00)
[2017-07-31] MEDS: DIPHENHYDRAMINE 50 MG INJ IV (23:02)
[2017-08-01] MEDS: FLUOXETINE 20 MG CAP PO (01:39)
[2017-08-01] MEDS: RANITIDINE 150 MG TAB PO (01:40)
[2017-08-01] MEDS: ACETAMINOPHEN 325 MG TAB PO ×2 (02:50→11:24)
[2017-08-01] MEDS: LEVOTHYROXINE 100 MCG TAB PO (05:19)
[2017-08-01] MEDS: LEVOTHYROXINE 25 MCG TAB PO (05:19)
[2017-08-01] MEDS: HEPARIN 5,000 UNIT/0.5 ML VIAL SC (05:25)
[2017-08-01 07:58] LABS: ADD MAN DIFF? NO
[2017-08-01 08:01] LABS: ABNORMAL IP MESSAGE 1; BASOPHIL # 0.1 10^3/ul (0.0-0.1); EOSINOPHILS # 0.2 10^3/ul (0.0-0.5); EOSINOPHILS % 2.2 % (0.0-7.0); HEMATOCRIT 26.6 % (42.0-52.0); HEMOGLOBIN 9.3 g/dl (14.0-18.0); LYMPHOCYTES # 0.5 10^3/ul (0.8-2.9); LYMPHOCYTES % 6.7 % (15.0-51.0); MEAN CORPUSCULAR HEMOGLOBIN 31.6 pg (29.0-33.0); MEAN CORPUSCULAR VOLUME 90.5 fl (82.0-101.0); MEAN PLATELET VOLUME 10.8 fl (7.4-10.4); MONOCYTE # 0.8 10^3/ul (0.3-0.9); MONOCYTES % 12.4 % (0.0-11.0); NEUTROPHIL # 5.2 10^3/ul (1.6-7.5); NEUTROPHILS % 77.4 % (39.0-77.0); PLATELET COUNT 137 10^3/UL (140-415); POSITIVE DIFF @See below; RED BLOOD COUNT 2.94 10^6/ul (4.70-6.10); RED CELL DISTRIBUTION WIDTH 19.4 % (11.5-14.5)
[2017-08-01 08:01] LABS: WHITE BLOOD COUNT 6.8 10^3/ul (4.8-10.8)
[2017-08-01 08:17] LABS: ANION GAP 16 (8-16); BLOOD UREA NITROGEN 25 mg/dl (7-20); CALCIUM 8.7 mg/dl (8.4-10.2); CARBON DIOXIDE 29 mmol/L (21-31); CHLORIDE 99 mmol/L (97-110); CREATININE 5.62 mg/dl (0.61-1.24); GLUCOSE 92 mg/dl (70-220); SODIUM 141 mmol/L (135-144)
[2017-08-01] MEDS: SEVELAMER CARBONATE 0.8 GM PKT PO (08:33)
[2017-08-01] MEDS: LIOTHYRONINE 5 MCG TAB PO (08:33)
[2017-08-01] MEDS: NIFEdipine (XL) 30 MG TAB PO (08:33)
[2017-08-01] MEDS: POTASSIUM CHLORIDE (SR) 10 MEQ TAB PO (10:13)
[2017-08-01 15:22] LABS: MYCOPLASMA PNEUMONIAE AB (IGG) 2.45
== END 2017-08-01 11:30 | disposition home or self-care (01) | DRG 981 ==
LOC: TEL 07-19 08:12 → E/R 22:14 → MS4 07-18 03:23
PROC: 03L80ZZ Occlusion of Left Brachial Artery, Open Approach (ICD-10-PCS; principal; 2017-07-28 10:00)
PROC: 05LA0ZZ Occlusion of Left Brachial Vein, Open Approach (ICD-10-PCS; 2017-07-28 10:00)
PROC: 5A1D70Z Performance of Urinary Filtration, Intermittent, Less than 6 Hours Per Day (ICD-10-PCS; 2017-07-28 11:09)
PROC: 009U3ZX Drainage of Spinal Canal, Percutaneous Approach, Diagnostic (ICD-10-PCS; 2017-07-28 11:09)
PROC: B01BZZZ Fluoroscopy of Spinal Cord (ICD-10-PCS; 2017-07-28 11:09)
PROC: 0W9G3ZZ Drainage of Peritoneal Cavity, Percutaneous Approach (ICD-10-PCS; 2017-07-28 11:09)
PROC: 5A09357 Assistance with Respiratory Ventilation, Less than 24 Consecutive Hours, Continuous Positive Airway Pressure (ICD-10-PCS; 2017-07-28 11:09)
DX: J18.9 Pneumonia, unspecified organism (principal); N18.6 End stage renal disease; G92 Toxic encephalopathy; I50.22 Chronic systolic (congestive) heart failure; I13.2 Hypertensive heart and chronic kidney disease with heart failure and with stage 5 chronic kidney disease, or end stage renal disease; I47.2 Ventricular tachycardia; I47.1 Supraventricular tachycardia; T82.898A Other specified complication of vascular prosthetic devices, implants and grafts, initial encounter; R18.8 Other ascites; Z99.2 Dependence on renal dialysis; E11.22 Type 2 diabetes mellitus with diabetic chronic kidney disease; E03.9 Hypothyroidism, unspecified; I72.8 Aneurysm of other specified arteries; Z68.25 Body mass index [BMI] 25.0-25.9, adult; G47.33 Obstructive sleep apnea (adult) (pediatric); I27.29 Other secondary pulmonary hypertension; R94.5 Abnormal results of liver function studies; M10.9 Gout, unspecified; D64.9 Anemia, unspecified; F32.9 Major depressive disorder, single episode, unspecified; I35.2 Nonrheumatic aortic (valve) stenosis with insufficiency; Z85.850 Personal history of malignant neoplasm of thyroid; I70.8 Atherosclerosis of other arteries; Y71.8 Miscellaneous cardiovascular devices associated with adverse incidents, not elsewhere classified; R19.7 Diarrhea, unspecified; R09.02 Hypoxemia; R74.0 Nonspecific elevation of levels of transaminase and lactic acid dehydrogenase [LDH]; E66.01 Morbid (severe) obesity due to excess calories; K74.60 Unspecified cirrhosis of liver
CPT/HCPCS: 36600; 70551; 71045; 71250; 74176; 74181; 76700; 80048; 80053; 80061; 80202; 82103; 82105; 82140; 82390; 82525; 82803; 82945; 83519; 83605; 83880; 84100; 84145; 84157; 84443; 84484; 85025; 85610; 85651; 85730; 86021; 86038; 86301; 86592; 86644; 86704; 86706; 86709; 86738; 86803; 87040; 87070; 87081; 87102; 87116; 87252; 87275; 87276; 87279; 87280; 87340; 87449; 87496; 87529; 88104; 88305; 89051; 90935; 93005; 93306; 94640; 94660; 95819; 96372; 96374; 96375; 96376; 97110; 97116; 97163; 97530; 99291-25